=== PATIENT | female | born 2000 | race Caucasian/White ===

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

== ENCOUNTER 2023-08-20 18:21 | Emergency (ER) | payer OTHER ==
[~2023-08-20] VITALS: Ht 160 cm; Wt 112.5 kg
[2023-08-20 18:30] VITALS: BP 132/74; PULSE 82; RESP 18; TEMP 97.2; O2SAT 98
[2023-08-20] MEDS ORDERED: LOPERAMIDE 2 MG CAP PO ONE (18:55)
[2023-08-20] MEDS ORDERED: MECLIZINE 25 MG TAB PO ONE (18:55)
[2023-08-20] MEDS ORDERED: MECL-303 PO (19:35)
[2023-08-20] MEDS ORDERED: ONDA-188 SL (19:40)
[2023-08-20] MEDS ORDERED: IMO2 PO (19:40)
[2023-08-20 19:50] VITALS: BP 132/74; PULSE 82; RESP 18; TEMP 97.2; O2SAT 98
== END 2023-08-20 19:50 | disposition home or self-care (01) ==
LOC: MED 18:21
DX: H81.10 Benign paroxysmal vertigo, unspecified ear (principal); R19.7 Diarrhea, unspecified; R03.0 Elevated blood-pressure reading, without diagnosis of hypertension; J45.909 Unspecified asthma, uncomplicated; Z79.899 Other long term (current) drug therapy
CPT/HCPCS: 81025; 99283; J8597